=== PATIENT | female | born 1955 | race Caucasian/White ===

== ENCOUNTER 2019-03-22 09:44 | Emergency (ER) | payer OTHER ==
[~2019-03-22] VITALS: Ht 167.6 cm; Wt 104.3 kg
[~2019-03-22 09:44] MED LIST: BENA20TA10 PO; LEVO0.124 PO; [UNRECOGNIZED DRUG - CODE] PO
--- NOTE | 2019-03-22 09:44 | NUR ---
PATIENT BIBA TO BED 8 AT THIS TIME
[2019-03-22 09:50] VITALS: BP 178/94
[2019-03-22] MEDS ORDERED: ONDANSETRON 4 MG ODT PO ONE (10:10)
[2019-03-22] MEDS ORDERED: MORPHINE SULFATE 4 MG/ML SYR IM ONE (10:10)
--- NOTE | 2019-03-22 10:31 | NUR ---
PATIENT TAKEN FOR CT SCAN VIA [facility] AT THIS TIME.
--- NOTE | 2019-03-22 10:41 | NUR ---
pt returned from ct
[2019-03-22 11:28] LABS: HEMATOCRIT 45.7 % (36-48); HEMOGLOBIN 14.8 g/dL (12.0-16.0); MEAN CORPUSCULAR HEMOGLOBIN 30 pg (27-31); MEAN CORPUSCULAR HGB CONC 32 g/dL (33-37); MEAN CORPUSCULAR VOLUME 93.3 fL (80-94); PLATELET COUNT (AUTO) 366 K/uL (140-450); RED CELL DISTRIBUTION WIDTH 16.2 % (11.6-13.7); WHITE BLOOD COUNT (AUTO) 15.5 K/uL (4.8-10.8)
[2019-03-22 11:39] LABS: ALBUMIN 3.6 g/dL (3.4-5.0); ANION GAP 16.5 (8-16); CARBON DIOXIDE 23.4 mmol/L (21-32); CREATININE 0.9 mg/dL (0.6-1.3); POTASSIUM 3.9 mmol/L (3.5-5.1); TOTAL BILIRUBIN 0.4 mg/dL (0.0-1.0)
[2019-03-22 11:46] LABS: LYMPHOCYTES % (MANUAL) 24 % (20-46); MONOCYTES % (MANUAL) 2 % (5-12)
--- NOTE | 2019-03-22 11:56 | NUR ---
Stable VSS Afebrile Minimal pain since Morphine Awaiting lab results
[2019-03-22 12:10] LABS: APPEARANCE,URINE CLEAR (CLEAR); BILIRUBIN,URINE NEGATIVE (NEGATIVE); BLOOD, URINE NEGATIVE (NEGATIVE); COLOR,URINE YELLOW (YELLOW); LEUKOCYTE ESTERASE ,URINE NEGATIVE (NEGATIVE); NITRITE, URINE NEGATIVE (NEGATIVE); PH,URINE 5.5 (5.0-9.0); UGLUCOSE NEGATIVE (NEGATIVE)
--- NOTE | 2019-03-22 12:43 | NUR ---
Patient discharged with v/s stable. Written and verbal after care instructions given and explained. Patient alert, oriented and verbalized understanding of instructions. Ambulatory with steady gait. All questions addressed prior to discharge. ID band removed. Patient advised to follow up with PMD. Rx of NORCO given. Patient educated on indication of medication including possible reaction and side effects. Opportunity to ask questions provided and answered. PT AGREES TO WAIT IN LOBBY FOR TRANSPORTATION BACK TO [facility]. ALERT TO NAME, BIRTHDAY, PLACE, AND EVENT. VERBALIZED UNDERSTANDING.
[2019-03-22 12:44] VITALS: BP 124/64
== END 2019-03-22 12:43 | disposition home or self-care (01) ==
LOC: MED 09:44
DX: G89.29 Other chronic pain (principal); R10.9 Unspecified abdominal pain; D72.829 Elevated white blood cell count, unspecified; J45.909 Unspecified asthma, uncomplicated; E11.9 Type 2 diabetes mellitus without complications; K21.9 Gastro-esophageal reflux disease without esophagitis; I10 Essential (primary) hypertension; E07.9 Disorder of thyroid, unspecified; F17.200 Nicotine dependence, unspecified, uncomplicated; Z98.890 Other specified postprocedural states; Z88.8 Allergy status to other drugs, medicaments and biological substances; Z79.899 Other long term (current) drug therapy; Z88.6 Allergy status to analgesic agent; Z88.1 Allergy status to other antibiotic agents
CPT/HCPCS: 36415; 74176; 80053; 81003; 83690; 85025; 96372; 99284; J2270; Q0162; 96374